=== PATIENT | female | born 1995 | race Caucasian/White ===

== ENCOUNTER 2022-05-18 11:10 | Outpatient (CLI) | payer BC, SELFPAY ==
--- NOTE | ~2022-05-18 | XR_ITS ---
EXAMINATION: XR hysterosalpingogram INDICATION: Fertility testing TECHNIQUE: Hysterosalpingogram was performed by Dr. Alisa Lou MD with fluoroscopic canelo plummer. I was present to obtain fluoroscopic images. Fluoroscopy exposure time was 0.2 minutes. The DAP f or this procedure was 1.142 Gycm2. FINDINGS: [employer] Team Member image demonstrates an unremarkable pelvis. Fluoroscopic images demonstrate a normal appearing endometrial cavity which has been cannulated. Upon injection of contrast, both fallopian tu bes opacify and are normal in appearance. There is free spillage bilaterally. Uterus is without evid ence of synechia. IMPRESSION: Patent fallopian tubes. Reviewed, dictated and finalized at location [facility]. [facility] [employer] [facility] IMPRESSION: Patent fallopian tubes.
[2022-05-18 13:16] LABS: Beta HCG Quantitative < 2.39 mIU/ML
== END 2022-05-18 11:11 | disposition home or self-care (01) ==
LOC: ANHIMG 11:39 → ANHLAB 11:46
PROVIDERS: PCP Obstetrics & Gynecology Gynecology; Visit Provider Obstetrics & Gynecology Gynecology
DX: Z31.49 Encounter for other procreative investigation and testing (principal)
CPT/HCPCS: 36415; 58340; 74740; 84702; Q9966